=== PATIENT | male | born 1985 | race African-American/Black ===

== ENCOUNTER 2022-04-16 12:50 | Emergency (ER) | payer SELFPAY ==
[~2022-04-16] VITALS: Ht 180.3 cm; Wt 72.6 kg
[2022-04-16 14:43] VITALS: BP 124/69
== END 2022-04-16 14:44 | disposition home or self-care (01) ==
LOC: ER 12:50
DX: S61.401D Unspecified open wound of right hand, subsequent encounter (principal); W22.01XD Walked into wall, subsequent encounter; R23.4 Changes in skin texture
CPT/HCPCS: 73130; A4663

== ENCOUNTER 2022-12-07 13:57 | Emergency (ER) | payer MEDICAID ==
[~2022-12-07] VITALS: Ht 177.8 cm; Wt 70.3 kg
[2022-12-07 14:02] VITALS: O2SAT 98
[2022-12-07] MEDS ORDERED: KETOROLAC TROMETHAMINE 30 MG INJ IM ONE (14:30)
[2022-12-07] MEDS ORDERED: METOCLOPRAMIDE HCL 10 MG/2 ML VIAL IM ONE (14:30)
[2022-12-07] MEDS ORDERED: KETOROLAC TROMETHAMINE 30 MG INJ ONE (14:33)
[2022-12-07] MEDS ORDERED: METOCLOPRAMIDE HCL 10 MG/2 ML VIAL ONE (14:34)
[2022-12-07] MEDS ORDERED: CYCL10TA9 PO (16:19)
[2022-12-07] MEDS ORDERED: NABU-140 PO (16:19)
== END 2022-12-07 16:44 | disposition home or self-care (01) ==
LOC: ER 13:57
DX: M54.17 Radiculopathy, lumbosacral region (principal); Z79.899 Other long term (current) drug therapy
CPT/HCPCS: 99285; 72131; 96372 ×2; J1885; J2765; A4663

== ENCOUNTER 2023-03-14 19:15 | Emergency (ER) | payer MEDICAID ==
[~2023-03-14] VITALS: Ht 177.8 cm; Wt 70.3 kg
[~2023-03-14 19:15] MED LIST: CYCL10TA9 PO; NABU-140 PO
[2023-03-14] MEDS ORDERED: OXYCODONE/APAP 5-325 MG TABLET PO ONE (20:15)
[2023-03-14 20:17] LABS: BASOPHILS % (AUTO) 0.3 % (0.0-2.0); EOSINOPHILS # (AUTO) 0.1 K/uL (0.0-0.7); EOSINOPHILS % (AUTO) 2.4 % (0.0-7.0); HEMOGLOBIN 13.6 g/dL (12.5-16.3); LYMPHOCYTES # (AUTO) 1.4 K/uL (0.8-4.8); LYMPHOCYTES % (AUTO) 23.1 % (20.5-51.5); MEAN CORPUSCULAR HEMOGLOBIN 28.4 uug (23.8-33.4); MEAN CORPUSCULAR HGB CONC 33 g/dL (32.5-36.3); MEAN CORPUSCULAR VOLUME 85.4 fL (73.0-96.2); MONOCYTES # (AUTO) 0.5 K/uL (0.1-1.30); MONOCYTES % (AUTO) 8.1 % (0.0-11.0); NEUTROPHILS % (AUTO) 66.1 % (38.5-71.5); PLATELET COUNT (AUTO) 175 K/uL (152-348); RED CELL DISTRIBUTION WIDTH 13.6 % (12.1-16.2)
[2023-03-14] MEDS ORDERED: OXYCODONE/APAP 5-325 MG TABLET ONE (20:17)
[2023-03-14 20:23] LABS: CALCIUM 8.7 mg/dL (8.5-10.1); CARBON DIOXIDE 32 mmol/L (21-32); CHLORIDE 103 mmol/L (98-107); GLUCOSE 89 mg/dL (74-106); POTASSIUM 3.3 mmol/L (3.5-5.1); SODIUM SERUM 141 mmol/L (136-145); UREA NITROGEN, BLOOD 11 mg/dL (7-18)
[2023-03-14 20:24] LABS: DIFFERENTIAL COMMENT 1
[2023-03-14 20:37] LABS: NT-PRO BNP 87 pg/mL (0-125)
[2023-03-14] MEDS ORDERED: POTASSIUM BICARBONATE/CIT AC 25 MEQ TABLET.EFF PO ONE (20:45)
[2023-03-14] MEDS ORDERED: POTASSIUM BICARBONATE/CIT AC 25 MEQ TABLET.EFF ONE (20:56)
[2023-03-14] MEDS ORDERED: ACET1TAB23 PO (20:57)
[2023-03-14 21:20] VITALS: BP 125/83; O2SAT 97
== END 2023-03-14 21:21 | disposition home or self-care (01) ==
LOC: ER 19:16
DX: R07.89 Other chest pain (principal); E87.6 Hypokalemia; Z79.899 Other long term (current) drug therapy
CPT/HCPCS: 36415; 71045; 84484; 85025; 93005; A4606; A4663